=== PATIENT | male | born 1940 | race Caucasian/White ===

== ENCOUNTER 2020-05-24 16:40 | Emergency (ER) | payer MEDICARE, OTHER ==
[~2020-05-24] VITALS: Ht 188 cm; Wt 108.1 kg
[~2020-05-24 16:40] MED LIST: ACET325T9 PO; AMIT10TA PO; CHOL10003 PO; DILT120C99 PO; ESCITALOPRAM OX10 MG PO; GABA-586 PO; HYDR-2155 PO; MAG30ORA2 PO; MAGN24003 PO; METH29OI TP; MIRT7.5T8 PO; MORP-15 PO; OMEP40CA45 PO; PRAV20TA2 PO; QUET25TA PO; TAMS0.4C2 PO; WARF-31 PO
--- NOTE | 2020-05-24 16:51 | PHYS DOC ---
Past History Past Medical History: A-Fib, CAD, Depression, GERD, High Cholesterol Past Surgical History: Other Alcohol Use: None Drug Use: None Adult General Chief Complaint Chief Complaint: MECHANICAL FALL HPI HPI Patient is a 79-year-old male who presents from [facility] status post fall. Fall occurred just prior to arrival. Patient had recent spinal surgery for spinal stenosis at [facility] and [facility] at [facility] for past [facility]. Patient was going against ordered rules and attempting to transfer without assistance from bed to bedside chair when he fell onto his right hip. He fell onto carpet with cement underneath. Patient denies any loss of consciousness but cannot definitively tell me how he caught himself and braced his fall. This fall was not witnessed. Patient was on the ground and due to instantaneous right hip pain, called out for help. EMS was subsequently called for transportation to our ED for evaluation. Of note, patient currently takes Eliquis for atrial fibrillation. Besides right hip pain, patient denies any other complaints at this time The mechanism of injury was a mechanical ground level fall without syncope or near-syncope. The current level of pain is minimal The patient DOES take blood thinner medications. There is NOT a laceration associated with the injury. There was no loss of consciousness, confusion, seizure, or memory impairment. Denies neck pain. Denies vomiting, numbness/weakness, fever The tetanus immunization status is up to date. Review of Systems Review of Systems Fourteen body systems of review of systems have been reviewed. See HPI for pertinent positives and negative responses, other leung all other systems are negative, non-pertinent or non-contributory Allergies Allergies Allergies Coded Allergies Type Severity Reaction Last Updated Verified atorvastatin Allergy Unknown 05/24/20 Yes morphine Allergy Unknown 05/24/20 Yes pravastatin Allergy Unknown 05/24/20 Yes Physical Exam Physical Exam Constitutional: Pt is oriented to person, place, and time. Pt appears well- developed and well-nourished. HENT: Head: Normocephalic and atraumatic. Mouth/Throat: Oropharynx is clear and moist. No hematomas or lacerations or abrasions to face or scalp OP clear, no blood, no malocclusion, dentition intact Nares clear, no nasal septal hematoma External ears unremarkable Midface stable Eyes: Conjunctivae and EOM are normal. Pupils are equal, round, and reactive to light. Neck: C-spine midline nontender, no step-offs, good range of motion Cardiovascular: Normal rate, irregular rhythm and normal heart sounds. Pulmonary/Chest: Effort normal and breath sounds normal. No respiratory distress. He has no wheezes. CTA bilaterally Abdominal: Soft. Bowel sounds are normal. Pt exhibits mild distension. There is no tenderness. Musculoskeletal: No bony tenderness to extremities, able to wiggle fingers and toes freely, no palpable deformities, mild decreased range of motion of right hip due to pain Chest wall stable Pelvis stable, mild tenderness to palpation to lateral aspect of right hip No vertebral TTP and spine without stepoffs Neurological: Pt is alert and oriented to person, place, and time. Moving all extremities willfully, able to wiggle all fingers and toes Alert and oriented x 3 Sensation grossly intact Skin: Skin is warm and dry. Bruising at different stages of healing of upper extremities from previous vena punctures No abrasions, no lacerations Psychiatric: Behavior is appropriate for situation Nursing note and vitals reviewed. EKG EKG EKG ordered and interpreted by myself at 17 1800 hrs. as right controlled atrial fibrillation with average ventricular rate roughly 89 bpm, prolonged QTC at 506, left axis deviation, no ischemic findings, no STEMI Radiology/Procedures Radiology/Procedures PROCEDURE: HIP RIGHT 2V WITH PELVIS Right hip 2 views including AP pelvis 05/24/2020. Reason for exam: Pain after falling. Use of the right hip show no fracture or dislocation. There is mild joint space narrowing. AP view of the pelvis reveals no fracture or dislocation. No destructive process is seen. IMPRESSION: No acute abnormality. Electronically signed by: Zack Pina Jr., MD (05/24/2020 5:20 PM) [facility] PROCEDURE: CT HEAD WO CONTRAST STUDY: CT head without contrast INDICATION: Fall. On Eliquis. No reported loss of consciousness. COMPARISON: 08/24/2015 TECHNIQUE: Axial CT imaging through the head without the use of intravenous contrast. Sagittal and coronal reformats were obtained. One or more of the following individualized dose reduction techniques were utilized for this examination: 1. Automated exposure control 2. Adjustment of the mA and/or kV according to patient size 3. Use of iterative reconstruction technique. FINDINGS: No acute intracranial hemorrhage. No mass effect or midline shift. No CT evidence for an acute cortical infarction. Generalized prominence of the ventricular system is similar to comparison and most likely on account of parenchymal volume loss. Intracranial atherosclerotic calcifications. Intact calvarium. Surgical changes in the left temporoparietal region. Unchanged hypoattenuating focus within the midline frontal calvarium with internal lacelike mineralization. Stability over time is typical of a benign process. No layering fluid within the visualized paranasal sinuses. Normally aerated mastoid air cells and middle ears. IMPRESSION: No acute intracranial abnormality by CT. Chronic/senescent findings as above. Electronically signed by: TRAVIS BELTRÁN MD (05/24/2020 6:19 PM) [id number] Course & Med Decision Making Course & Med Decision Making Patient seen immediately on ED evaluation by myself Vitals stable, hemodynamically stable. History concerning for fall and high risk patient on blood thinners Physical exam grossly benign for any emergent findings Decision made to obtain [id number] glucose which was unremarkable, EKG, chest x-ray, CT head, and imaging of pelvis with emphasis on right hip Given history, exam, and workup, low suspicion for ICH, skull fx, spine fx or other acute spinal syndrome, PTX, pulmonary contusion, cardiac contusion, aortic/vertebral dissection, significant hemorrhage, extremity fracture. Patient well-appearing, at baseline mentation and physical status, and asymptomatic throughout entirety of ED visit Joint decision to discharge back to [facility] with close physician follow-up Strict return precautions discussed with good understanding by patient, all questions and concerns addressed prior to ED departure Dragon Disclaimer Dragon Disclaimer This electronic medical record was generated, in whole or in part, using a voice recognition dictation system. Departure Departure: Impression: Primary Impression: Fall Additional Impressions: Chronic a-fib Chronic anticoagulation Spinal stenosis DNR (do not resuscitate) Disposition: 01 HOME/RESIDENCE PRIOR TO ADM (Discharged via EMS back to [place]) Condition: STABLE Referrals: ANGELA PEPE DO (PCP) Patient Instructions: Fall Prevention in Hospitals Additional Instructions: Discussed prior to ER departure, please follow-up with your [facility] physician regarding recent fall You are high risk for falls and other complications given recent surgery performed on your back less than 1 month ago Please comply with prescribed orders such as ambulating with assistance in transferring with assistance as you are high risk for falling and other serious complications Justification of Admission: Justification of Admission: Justification of Admission Dx: N/A Problem Qualifiers ENE BISHOP DO May 24, 2020 16:50
--- NOTE | 2020-05-24 17:19 | EKG ---
[address] [address] Test Date: 2020-05-24 Test Time: 17:12:22 Pat Name: PORTIA PEREIRA Department: Room: Gender: M Cotton Classer Aide: NICOLE : 1940 Requested By: ENE BISHOP Order Number: [id number] Reading MD: Zack Garvin Measurements Intervals [place] Rate: 89 P: MI: QRS: -5 QRSD: 100 T: 55 QT: 410 QTc: 506 Interpretive Statements ATRIAL FIBRILLATION LEFTWARD AXIS PROLONGED QT NO SPECIFIC ECG ABNORMALITIES RI6.02 No previous ECG available for comparison Electronically Signed On 05-25-2020 14:20:42 CDT by Zack Garvin
--- NOTE | 2020-05-24 17:22 | RAD ---
Right hip 2 views including AP pelvis 05/24/2020. Reason for exam: Pain after falling. Use of the right hip show no fracture or dislocation. There is mild joint space narrowing. AP view of the pelvis reveals no fracture or dislocation. No destructive process is seen. IMPRESSION: No acute abnormality. Electronically signed by: Zack Pina Jr., MD (05/24/2020 5:20 PM) [facility]
[2020-05-24 18:13] VITALS: BP 157/57
--- NOTE | 2020-05-24 18:22 | RAD ---
STUDY: CT head without contrast INDICATION: Fall. On Eliquis. No reported loss of consciousness. COMPARISON: 08/24/2015 TECHNIQUE: Axial CT imaging through the head without the use of intravenous contrast. Sagittal and coronal reformats were obtained. One or more of the following individualized dose reduction techniques were utilized for this examination: 1. Automated exposure control 2. Adjustment of the mA and/or kV according to patient size 3. Use of iterative reconstruction technique. FINDINGS: No acute intracranial hemorrhage. No mass effect or midline shift. No CT evidence for an acute cortical infarction. Generalized prominence of the ventricular system is similar to comparison and most likely on account of parenchymal volume loss. Intracranial atherosclerotic calcifications. Intact calvarium. Surgical changes in the left temporoparietal region. Unchanged hypoattenuating focus within the midline frontal calvarium with internal lacelike mineralization. Stability over time is typical of a benign process. No layering fluid within the visualized paranasal sinuses. Normally aerated mastoid air cells and middle ears. IMPRESSION: No acute intracranial abnormality by CT. Chronic/senescent findings as above. Electronically signed by: TRAVIS BELTRÁN MD (05/24/2020 6:19 PM) [id number]
== END 2020-05-24 18:55 | disposition home or self-care (01) ==
LOC: ER 16:40
DX: M25.551 Pain in right hip (principal); I48.20 Chronic atrial fibrillation, unspecified; M48.00 Spinal stenosis, site unspecified; I25.10 Atherosclerotic heart disease of native coronary artery without angina pectoris; K21.9 Gastro-esophageal reflux disease without esophagitis; E78.00 Pure hypercholesterolemia, unspecified; Z66 Do not resuscitate; Z79.01 Long term (current) use of anticoagulants; Z88.5 Allergy status to narcotic agent; Z88.8 Allergy status to other drugs, medicaments and biological substances; W18.39XA Other fall on same level, initial encounter; Y93.89 Activity, other specified; Y92.89 Other specified places as the place of occurrence of the external cause; Y99.8 Other external cause status
CPT/HCPCS: 70450; 73502; 82947; 93005; 99285-25

== ENCOUNTER 2020-05-30 12:23 | Inpatient (IN) | payer MEDICARE, OTHER ==
[~2020-05-30] VITALS: Ht 177.8 cm; Wt 105.6 kg
[2020-05-30] MEDS ORDERED: IV RINGERS SOLUTION,LACTATED 1,000 ML IV ONE (12:45)
[2020-05-30 13:09] LABS: BASO # 0.2 x10^3/uL (0.0-0.2); BASO % 0 % (0-3); EOS # 0.3 x10^3/uL (0.0-0.7); EOS % 0 % (0-3); HEMATOCRIT 26.9 % (39.0-53.0); HEMOGLOBIN 7.5 g/dL (13.0-17.5); LYMPH # 107.7 x10^3/uL (1.0-4.8); LYMPH % 85 % (24-48); MEAN CORPUSCULAR HEMOGLOBIN 22 pg (25-35); MEAN CORPUSCULAR HGB CONC 28 g/dL (31-37); MEAN CORPUSCULAR VOLUME 81 fL (79-100); MONO # 3.6 x10^3/uL (0.0-1.1); MONO % 3 % (0-9); NEUT % 12 % (31-73); PLATELET COUNT 280 x10^3/uL (140-400); RED BLOOD COUNT 3.34 x10^6/uL (4.30-5.70); RED CELL DISTRIBUTION WIDTH 20.1 % (11.5-14.5)
--- NOTE | 2020-05-30 13:12 | RAD ---
Single view chest dated 05/30/2020. Comparison made to 08/23/2015. Clinical data indication: Fever and hypoxia. FINDINGS: 2 upright portable images submitted. Heart size is upper limits of normal. There is some patchy and linear perihilar opacities, somewhat increased. There is also retrocardiac increased density in the left. Blunting of left costophrenic sulcus. No pneumothorax. IMPRESSION: 1. Left basilar consolidation, atelectasis versus pneumonia. 2. Mild nonspecific perihilar opacities with possible small left pleural effusion. Electronically signed by: Nilson Penaloza MD (05/30/2020 1:09 PM) [id number]
[2020-05-30 13:15] LABS: CALCIUM 8.1 mg/dL (8.5-10.1); CREATININE 1.4 mg/dL (0.7-1.3); POTASSIUM 3.7 mmol/L (3.5-5.1)
[2020-05-30] MEDS ORDERED: VANCOMYCIN 1 GM VIAL. ONE (13:26)
[2020-05-30] MEDS ORDERED: IV NORMAL SALINE 500ML 0 ML ONE (13:26)
[2020-05-30 13:27] LABS: ALBUMIN 2.7 g/dL (3.4-5.0); ALBUMIN/GLOBULIN RATIO 0.8 (1.0-1.7); MAGNESIUM 2.2 mg/dL (1.8-2.4); TOTAL BILIRUBIN 0.6 mg/dL (0.2-1.0); TOTAL PROTEIN 6.3 g/dL (6.4-8.2)
[2020-05-30] MEDS ORDERED: VANCOMYCIN 2 GM in IV NORMAL SALINE 500ML 500 ML IV ONE (13:30)
[2020-05-30 13:45] LABS: WHITE BLOOD COUNT 126.7 x10^3/uL (4.0-11.0)
--- NOTE | 2020-05-30 13:49 | PHYS DOC ---
Past History Past Medical History: A-Fib, Anemia, CHF, Dementia, Depression, High Cholesterol, Hypertension, Renal Disease, Other Additional Past Medical Histor: leukemia, TBI Past Surgical History: Other Alcohol Use: None Drug Use: None General Adult EDM: Chief Complaint: FEVER HPI: HPI: The history was obtained from the patient and EMS. Patient is a 79-year-old male with PMH dementia, recent spinal fracture, atrial fibrillation, hy pertension who presents with a chief complaint of fever. Patient currently resides at [facility]. He has lived there for the past 2 weeks due to a spinal fracture that occurred approximately 2 weeks ago. He was treated at [facility]. Per EMS they were called to the patient's rehabilitation facility for acute onset of fever. EMS states they were diverted to our facility due to resource allocation in the community regarding the ambulance availability. Per EMS the staff reported a temperature of 105.0. Upon their arrival EMS notes a temperature 99.0. Patient although a poor historian is alert and oriented x3. He denies any cough. He does note some increased shortness of breath. He denies any chest pain. He states he is not ambulatory. He denies any recent falls. Denies any recent antibiotics. Denies any vomiting. States that he does not use oxygen at home. Denies any known exposure to coronavirus. Has not tested positive for smiley virus to his knowledge. No other complaints. Review of Systems: Review of Systems: Constitutional: Denies fever or chills Eyes: Denies change in visual acuity HENT: Denies nasal congestion or sore throat Respiratory: Positive for shortness of breath Cardiovascular: Denies chest pain or edema GI: Denies abdominal pain, nausea, vomiting, bloody stools or diarrhea : Denies dysuria Musculoskeletal: Denies back pain or joint pain Integument: Denies rash Neurologic: Denies headache, focal weakness or sensory changes Endocrine: Denies polyuria or polydipsia Lymphatic: Denies swollen glands Psychiatric: Denies depression or anxiety Heart Score: Risk Factors: Risk Factors: DM, Current or recent (<one month) smoker, HTN, HLP, family history of CAD, obesity. Risk Scores: Score 0 - 3: 2.5% MACE over next 6 weeks - Discharge Home Score 4 - 6: 20.3% MACE over next 6 weeks - Admit for Clinical Observation Score 7 - 10: 72.7% MACE over next 6 weeks - Early Invasive Strategies Current Medications: Current Meds: Current Medications Medications (Trade) Dose Ordered Sig/Racheal Start Time Stop Time Status Last Admin Dose Admin Cefepime HCl 2 gm/ Sodium Chloride 100 ml @ 200 mls/hr Q8HRS 05/30/20 14:00 Lactated Ringer's 1,000 ml @ 100 mls/hr 1X ONCE 05/30/20 12:45 05/30/20 22:44 05/30/20 12:52 100 MLS/HR Sodium Chloride 0 ml @ As Directed STK-MED ONCE 05/30/20 13:26 05/30/20 13:27 DC Vancomycin HCl (Vancomycin) 1 gm STK-MED ONCE 05/30/20 13:26 05/30/20 13:27 DC Vancomycin HCl 2 gm/Sodium Chloride 500 ml @ 250 mls/hr 1X ONCE 05/30/20 13:30 05/30/20 15:29 Allergies: Allergies: Allergies Coded Allergies Type Severity Reaction Last Updated Verified atorvastatin Allergy Unknown 05/24/20 Yes morphine Allergy Unknown 05/24/20 Yes pravastatin Allergy Unknown 05/24/20 Yes Physical Exam: PE: Constitutional: Well developed, well nourished, no acute distress, non-toxic appearance. [] HENT: Normocephalic, atraumatic, bilateral external ears normal, oropharynx moist, no oral exudates, nose normal. [] Eyes: PERRLA, EOMI, conjunctiva normal, no discharge. [] Neck: Normal range of motion, no tenderness, supple, no stridor. [] Cardiovascular:Heart rate regular rhythm, no murmur [] Lungs & Thorax: Crackles noted in the left lower lung pappas. No wheezes appreciated. No accessory muscle usage noted. 85% on room air per EMS. 94% on 3 L nasal cannula currently. Abdomen: soft, no tenderness, no masses, no pulsatile masses. [] Skin: Warm, dry, no erythema, no rash. [] Back: No tenderness, no CVA tenderness. [] Extremities: No tenderness, no cyanosis, no clubbing, ROM intact, no edema. [] Neurologic: Alert and oriented X 3, normal motor function, normal sensory function, no focal deficits noted. [] Psychologic: Affect normal, judgement normal, mood normal. [] Current Patient Data: Labs: Laboratory Tests Test 05/30/20 12:40 Sodium Level 143 mmol/L (136-145) Potassium Level 3.7 mmol/L (3.5-5.1) Chloride Level 105 mmol/L (98-107) Carbon Dioxide Level 27 mmol/L (21-32) Anion Gap 11 (6-14) Blood Urea Nitrogen 23 mg/dL (8-26) Creatinine 1.4 mg/dL (0.7-1.3) H Estimated GFR (Cockcroft-Gault) 49.0 BUN/Creatinine Ratio 16 (6-20) Glucose Level 148 mg/dL (70-99) H Lactic Acid Level 1.0 mmol/L (0.4-2.0) Calcium Level 8.1 mg/dL (8.5-10.1) L Magnesium Level 2.2 mg/dL (1.8-2.4) Total Bilirubin 0.6 mg/dL (0.2-1.0) Aspartate Amino Transferase (AST) 14 U/L (15-37) L Alanine Aminotransferase (ALT) 13 U/L (16-63) L Alkaline Phosphatase 90 U/L (46-116) Troponin I Quantitative < 0.017 ng/mL (0-0.055) GR-Csw-B-Type Natriuretic Peptide 5810 pg/mL (0-449) H Total Protein 6.3 g/dL (6.4-8.2) L Albumin 2.7 g/dL (3.4-5.0) L Albumin/Globulin Ratio 0.8 (1.0-1.7) L Vital Signs: Vital Signs Date Time Temp Pulse Resp B/P (MAP) Pulse Ox O2 Delivery O2 Flow Rate FiO2 05/30/20 12:23 98.3 80 32 150/50 (83) 94 Nasal Cannula 2.0 EKG: EKG: EKG consistent with normal sinus rhythm. Ventricular rate of 92 bpm. Left axis noted. Flipped T waves noted in lead I. Slight worsening of ST segment flattening and very minimal depression noted in lateral precordial leads.. No ST segment elevation appreciated. Overall similar to EKG from May 24, 2020.. [] Radiology/Procedures: Radiology/Procedures: [address] [address] IMAGING REPORT Signed PATIENT: PORTIA PEREIRA ACCOUNT: [id number] : 1940 LOCATION: ER AGE: 79 SEX: M EXAM STATUS: REG ER ORD. PHYSICIAN: ZACKARY STOCKTON DO REASON: fever and hypoxia PROCEDURE: CHEST AP ONLY Single view chest dated 05/30/2020. Comparison made to 08/23/2015. Clinical data indication: Fever and hypoxia. FINDINGS: 2 upright portable images submitted. Heart size is upper limits of normal. There is some patchy and linear perihilar opacities, somewhat increased. There is also retrocardiac increased density in the left. Blunting of left costophrenic sulcus. No pneumothorax. IMPRESSION: 1. Left basilar consolidation, atelectasis versus pneumonia. 2. Mild nonspecific perihilar opacities with possible small left pleural effusion. Electronically signed by: Nlison Penaloza MD (05/30/2020 1:09 PM) [id number] DICTATED AND SIGNED BY: NILSON PENALOZA MD DATE: 05/30/20 1309 CC: KRANTHI PRUITT MD; ZACKARY STOCKTON DO ~ [] Course & Med Decision Making: Course & Med Decision Making Pertinent Labs and Imaging studies reviewed. (See chart for details) Patient is a 79-year-old male who presents with a chief complaint of acute onset fever per the staff at his rehabilitation facility. Upon arrival EMS states that the patient was satting at approximately 85% on room air. He has been satting at 94% on 3 L nasal cannula in our emergency department. Chest x-ray is suspicious for left lower lobe infiltrate. However he does have a history of A. fib and does have a mildly elevated proBNP. Given the reported temperature a ntibiotics will be administered. Vancomycin and cefepime were given, given the potential for senior living acquired pneumonia. Lactate 1.0. Afebrile and normotensive in emergency department. Fluids were administered. Blood cultures obtained and pending. COVID swab obtained and pending. Patient will be hospitalized for further care. Dragon Disclaimer: Dragon Disclaimer: This electronic medical record was generated, in whole or in part, using a voice recognition dictation system. 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
[2020-05-30] MEDS: CEFEPIME HCL 2 GM in IV NORMAL SALINE 100ML 100 ML IV SCH ×2 (13:55→22:00)
[2020-05-30 14:10] LABS: % ATYL 1 % (0-0); % MONOS 2 % (0-10); % SEGS 10 % (35-66); PLT ESTIMATE ADEQUATE (ADEQUATE); SMUDGE CELLS PRESENT
[2020-05-30 14:12] LABS: HYPOCHROMIA PRESENT
[2020-05-30 14:13] LABS: POLYCHROMASIA PRESENT
[2020-05-30 14:34] LABS: OVALOCYTES FEW
--- NOTE | 2020-05-30 15:38 | NUR ---
The patient, PORTIA PEREIRA, 79 y/o, M admitted by NICOLASA CORCORAN MD, was given written information regarding hospital policies, unit procedures and contact persons. Valuables were checked and left with patient at bedside. vital signs are stable at this time. will ctm.
[2020-05-30 15:55] VITALS: BP 140/45
[2020-05-30] MEDS ORDERED: APIX5TAB3 PO (16:29)
[2020-05-30] MEDS ORDERED: VENL37.5 PO (16:29)
[2020-05-30] MEDS ORDERED: DOCU-109 PO (16:29)
[2020-05-30] MEDS ORDERED: DILT120C2 PO (16:29)
[2020-05-30] MEDS ORDERED: CRESTOR10 MG PO (16:29)
[2020-05-30] MEDS ORDERED: TORS10TA3 PO (16:29)
[2020-05-30] MEDS ORDERED: MULT-245 PO (16:29)
[2020-05-30] MEDS ORDERED: ALPH600C5 PO (16:29)
[2020-05-30] MEDS ORDERED: LORA0.5T21 PO (16:29)
[2020-05-30] MEDS ORDERED: TRIM100T13 PO ×2 (16:38→16:48)
[2020-05-30] MEDS ORDERED: MEMA10TA PO (16:38)
[2020-05-30] MEDS ORDERED: GABA800T5 PO (16:44)
[2020-05-30] MEDS ORDERED: POTA8TAB PO (16:48)
[2020-05-30] MEDS ORDERED: OMEP20TA63 PO (16:48)
[2020-05-30] MEDS ORDERED: TRAZ-120 PO (16:48)
[2020-05-30] MEDS ORDERED: CALC-157 PO (16:48)
[2020-05-30] MEDS ORDERED: CYAN-25 PO (16:48)
[2020-05-30] MEDS ORDERED: VITA100022 PO (16:52)
[2020-05-30] MEDS ORDERED: DICL100G18 TP (16:52)
[2020-05-30] MEDS ORDERED: CHOL400T36 PO (16:52)
[2020-05-30 19:30] VITALS: BP 139/58
[2020-05-30] MEDS ORDERED: ANTI-COAG MONITOR BY PHARMACY. MC PRN (20:15)
--- NOTE | 2020-05-30 20:53 | EKG ---
[address] [address] Test Date: 2020-05-30 Test Time: 12:47:29 Pat Name: PORTIA PEREIRA Department: Room: Gender: M Ic Design Manager: : 1940 Requested By: ZACKARY STOCKTON Order Number: [id number] Reading MD: Measurements Intervals [place] Rate: 92 P: ND: QRS: -5 QRSD: 100 T: 146 QT: 370 QTc: 463 Interpretive Statements IRREGULAR RHYTHM, NO P-WAVE FOUND LEFTWARD AXIS ST & T ABNORMALITY, CONSIDER HIGH LATERAL ISCHEMIA OR LEFT VENTRICULAR STRAIN ABNORMAL ECG RI6.02 No previous ECG available for comparison
[2020-05-30] MEDS: MEMANTINE 10 MG TABLET. PO SCH (21:00)
[2020-05-30] MEDS: traZODone 50 MG TABLET. PO SCH (21:00)
[2020-05-30] MEDS: APIXABAN 5 MG TABLET. PO SCH (21:00)
[2020-05-30 22:59] VITALS: BP 118/47
--- NOTE | 2020-05-30 23:31 | HP ---
ADMIT DATE: 05/30/2020 ATTENDING PHYSICIAN: Dr. Corcoran. CHIEF COMPLAINT: Fevers. HISTORY OF PRESENT ILLNESS: The patient is a 79-year-old gentleman, currently residing at [facility]. He has had a decompression spinal fracture, treated at [facility]. He is profoundly demented. He was sent there for rehabilitation. Supposedly, EMS personnel reported a temperature of 105 degrees Fahrenheit. In the ED, his actual temperature was 99 degrees Fahrenheit. He denies any cough. He has increased shortness of breath and chronic shortness of breath, no chest pain. Chest x-ray in the ED demonstrated left lower lobe consolidation, infiltrate as well as perihilar infiltrates bilaterally. He has long term acquired pneumonia. In addition, because of the COVID pandemic, a COVID swab was ordered. He is not in impending respiratory failure. He has adequate saturations, on a small amount of supplemental oxygen. He is a DNR per advanced directives. He was admitted then for long term acquired pneumonia. PAST MEDICAL HISTORY: Significant for advanced chronic lymphocytic leukemia. White count is 127,000. He has anemia due to crowding out the bone marrow from his lymphocytic leukemia. He has profound dementia, depression, hypertension, chronic kidney disease, and paroxysmal atrial fibrillation. ALLERGIES: HE HAS ALLERGIES TO ATORVASTATIN, MORPHINE, AND PRAVASTATIN, EXACT REACTIONS UNCLEAR. CURRENT MEDICINES: Reviewed from the long term. He was on apixaban 5 mg b.i.d., Tylenol, lipoic acid, calcium, cholecalciferol, vitamin B12, Voltaren gel, diltiazem, docusate, Neurontin, lorazepam, Namenda, menthol, multivitamin, omeprazole, potassium, Crestor, Flomax, Demadex, trazodone, Effexor and vitamin E. FAMILY HISTORY: Unobtainable. REVIEW OF SYSTEMS: Unobtainable due to the patient's condition. He is not aware of what is going on. He is confused, but in no acute distress. PHYSICAL EXAMINATION: GENERAL: When I saw him, this is a pleasant elderly gentleman who appears very confused. He is not agitated. INITIAL VITAL SIGNS: In the ED showed a blood pressure 150/50 mmHg; respirations 24, unlabored; pulse is 80 and regular; temperature 98.4 degrees Fahrenheit; oxygen saturation 95% on 2 liters of nasal cannula. HEENT: Head is without trauma. Pupils are reactive. Sclerae nonicteric. Oropharynx clear. NECK: Supple, no bruits or stridor. LUNGS: Diminished breath sounds at the bases, minimal wheezing noted in the upper airways. CARDIOVASCULAR: Showed distant heart tones. No gallops. Peripheral pulses are palpable full. ABDOMEN: Obese, protuberant. No organomegaly. Bowel sounds are hypoactive. He has adult diapers. He is incontinent. EXTREMITIES: Showed no cyanosis or edema. NEUROLOGIC: Speech is fluent. He has no focal neurologic deficit. However, he is very confused to person, to place and time. SKIN: Pale but warm to touch. There are no open lesions. PERTINENT LABORATORY STUDIES AND IMAGING STUDIES: Initial chest x-ray in the ED showed a left basilar consolidation, nonspecific perihilar opacities bilateral, small pleural effusion identified. Laboratory studies are tell-tell, the white count of 126,000, hemoglobin is 7.5 g/dL, the platelet counts are 280,000. There are smudge cells present. There is polychromasia. The differential shows that the majority of these white cells are lymphocytes. Chemistry panel: Creatinine is 1.4 mg/dL, nonfasting blood sugar 148. Cardiac enzymes negative for myocardial necrosis. Potassium 3.7 mEq, sodium 143 mEq. BNP is 5800. ASSESSMENT: 1. A 79-year-old gentleman with long term acquired pneumonia. 2. Chronic respiratory failure. 3. Profound dementia. 4. Longstanding chronic lymphocytic leukemia. 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 6. Degenerative arthritis. 7. Recent fall and spinal compression fracture. 8. Mild renal insufficiency. 9. Hypertension. 10. Paroxysmal atrial fibrillation. PLAN: 1. Admit to the inpatient unit. 2. Intravenous antibiotics have been ordered. 3. Home meds reviewed and simplified. 4. Serial chemistries. 5. The patient has advanced directives for a DNR status. We will respect his wishes. Prognosis is guarded. 6. Diet as tolerated. 7. COVID-19 swab is pending. I do not expect this to be positive. NICOLASA CORCORAN MD DR: WILDER/sherlyn JOB#: [id number] / [id number] KRANTHI Perez MD
[2020-05-31] MEDS: LORazepam 0.5 MG TABLET PO PRN ×3 (00:39→23:49)
[2020-05-31] MEDS: ACETAMINOPHEN 325 MG TABLET PO PRN ×2 (00:39→08:49)
--- NOTE | 2020-05-31 01:34 | NUR ---
Pt oriented only to self. He answers questions with contradictions at times. Pt moaning and c/o all over pain and sweating while sleeping. Rolled pt to left side and tucked pillow behind him. Pt frequently removes his nasal cannula thinking it's his glasses. Repositioned nasal cannula properly. Encouraged pt to leave it in place. Will continue to monitor.
[2020-05-31 05:30] VITALS: BP 137/42
[2020-05-31] MEDS: CEFEPIME HCL 2 GM in IV NORMAL SALINE 100ML 100 ML IV SCH ×3 (05:41→21:04)
[2020-05-31 05:58] LABS: BASO # 0.5 x10^3/uL (0.0-0.2); BASO % 0 % (0-3); EOS # 0.4 x10^3/uL (0.0-0.7); EOS % 0 % (0-3); HEMATOCRIT 26.2 % (39.0-53.0); HEMOGLOBIN 7.2 g/dL (13.0-17.5); LYMPH # 102.5 x10^3/uL (1.0-4.8); LYMPH % 85 % (24-48); MEAN CORPUSCULAR HEMOGLOBIN 22 pg (25-35); MEAN CORPUSCULAR HGB CONC 28 g/dL (31-37); MEAN CORPUSCULAR VOLUME 81 fL (79-100); MONO # 3.2 x10^3/uL (0.0-1.1); MONO % 3 % (0-9); NEUT # 14.5 x10^3uL (1.8-7.7); NEUT % 12 % (31-73); PLATELET COUNT 247 x10^3/uL (140-400); RED BLOOD COUNT 3.23 x10^6/uL (4.30-5.70); RED CELL DISTRIBUTION WIDTH 19.7 % (11.5-14.5)
[2020-05-31 06:00] LABS: CREATININE 1.2 mg/dL (0.7-1.3); GFR 58.6; POTASSIUM 3.9 mmol/L (3.5-5.1)
[2020-05-31 06:22] LABS: WHITE BLOOD COUNT 121.1 x10^3/uL (4.0-11.0)
[2020-05-31] MEDS: TAMSULOSIN 0.4 MG CAP.ER.24H. PO SCH (07:49)
[2020-05-31] MEDS: MEMANTINE 10 MG TABLET. PO SCH ×2 (07:49→21:04)
[2020-05-31] MEDS: APIXABAN 5 MG TABLET. PO SCH ×2 (07:49→21:04)
[2020-05-31] MEDS: PANTOPRAZOLE 40 MG TABLET. PO SCH (07:49)
[2020-05-31] MEDS: LACTOBACILLUS RHAMNOSUS GG 1 CAPSULE. PO SCH ×2 (08:51→21:04)
--- NOTE | 2020-05-31 11:29 | PN ---
DATE: 05/31/2020 ATTENDING PHYSICIAN: Dr. Corcoran. SUBJECTIVE: No new complaints. He is feeling better. He denied any dyspnea nor pain. Unfortunately, he remains very confused. He wants to go home. He clearly cannot take care of himself as he came from the [facility]. OBJECTIVE FINDINGS: VITAL SIGNS: His blood pressure today is 137/42 mmHg, temperature 97.4 degrees Fahrenheit, pulse 70 and regular, oxygen saturation 94% on 2 liters of supplemental oxygen by nasal cannula. HEENT: Head is without trauma. Pupils are reactive. Sclerae nonicteric. Oropharynx clear. NECK: Supple. LUNGS: Good breath sounds. Diminished breath sounds at the bases. CARDIOVASCULAR: Showed distant heart tones. No gallops. Peripheral pulses are palpable and full. ABDOMEN: Obese, protuberant. No organomegaly. Bowel sounds were hypoactive. EXTREMITIES: Show trace edema. SKIN: Pale, but warm. NEUROLOGIC: Pleasantly confused. He is not aware of time or place. PERTINENT LABORATORY DATA: Repeat white count today was 121,000 ____, hemoglobin 7.2 g/dL. Chemistry panel showed stable creatinine and electrolytes. Creatinine is 1.2 mg/dL, nonfasting blood sugar 109. ASSESSMENT: 1. A 79-year-old gentleman with community-acquired pneumonia. 2. Acute on chronic respiratory failure, improved. 3. Profound dementia, requiring senior living care. 4. Longstanding chronic lymphocytic leukemia. 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 6. Degenerative arthritis. 7. Recent fall and spinal compression fracture. 8. Renal insufficiency, improved with hydration. 9. Hypertension. 10. Paroxysmal atrial fibrillation. PLAN: 1. Continue antibiotics as ordered. 2. Home meds simplified and reviewed. 3. Serial chemistries. 4. Diet as tolerated. 5. COVID-19 swab is pending. If that is negative, we will move him out of isolation to the regular floor. 6. He is a DNR per advanced directives. Our goal is to get him stabilized, then to oral antibiotics and back to [facility]. NICOLASA CORCORAN MD DR: WILDER/sherlyn JOB#: [id number] / [id number]
[2020-05-31 12:24] VITALS: BP 137/59
[2020-05-31 16:30] VITALS: BP 148/72
[2020-05-31 20:43] VITALS: BP 138/67
[2020-05-31] MEDS: traZODone 50 MG TABLET. PO SCH (21:04)
--- NOTE | 2020-05-31 22:02 | NUR ---
PT stating in no pain at time of assessment. PT only oriented to self. PT when asked how he was replied with "I've been playing with my penis". PT able to swallow medications whole, given 2-3 smaller ones at a time.
[2020-05-31 23:13] VITALS: BP 142/69
[2020-06-01 05:39] VITALS: BP 143/67
[2020-06-01] MEDS: CEFEPIME HCL 2 GM in IV NORMAL SALINE 100ML 100 ML IV SCH ×3 (06:17→22:00)
[2020-06-01] MEDS: ACETAMINOPHEN 325 MG TABLET PO PRN (07:40)
[2020-06-01] MEDS: LACTOBACILLUS RHAMNOSUS GG 1 CAPSULE. PO SCH ×2 (07:40→20:03)
[2020-06-01] MEDS: TAMSULOSIN 0.4 MG CAP.ER.24H. PO SCH (07:40)
[2020-06-01] MEDS: PANTOPRAZOLE 40 MG TABLET. PO SCH (07:40)
[2020-06-01] MEDS: APIXABAN 5 MG TABLET. PO SCH ×2 (07:40→20:04)
[2020-06-01] MEDS: MEMANTINE 10 MG TABLET. PO SCH ×2 (07:40→20:03)
[2020-06-01] MEDS: LORazepam 0.5 MG TABLET PO PRN ×3 (07:40→22:02)
[2020-06-01 10:06] VITALS: BP 145/52
--- NOTE | 2020-06-01 10:20 | NUR ---
IP: patient PUI for COVID-19, requires contact and airborne precautions.
--- NOTE | 2020-06-01 13:57 | PN ---
DATE: 06/01/2020 ATTENDING PHYSICIAN: Dr. Corcoran SUBJECTIVE: The patient remains pleasantly confused. He wants to go home. He does not understand that he has been at a alf. He has profound dementia and cannot take care of himself. He denied any pains at this time. OBJECTIVE FINDINGS: VITAL SIGNS: Blood pressure today is 145/52 mmHg, temperature is 97.1 degrees Fahrenheit, pulse 82 and regular, oxygen saturation 96% on room air. HEENT: Head is without trauma. The pupils are reactive. Sclerae nonicteric. Oropharynx is clear. NECK: Supple. LUNGS: Shallow respirations, but good air movement. CARDIOVASCULAR: Showed distant heart tones. ABDOMEN: Obese, protuberant. I could not palpate any liver or spleen enlargement due to the size. Bowel sounds are normoactive. EXTREMITIES: Show trace edema. SKIN: I examined the area of his back over the thoracic area where he had a recent surgery in the last month at [facility]. The soft tissue is slightly reddened, indurated. I could not palpate any obvious masses or fluid collection or blood collection. He is not symptomatic at this time. LABORATORY STUDIES: Reviewed yesterday. White count is still 121,000, predominantly lymphocytes. Electrolytes, BUN and creatinine within normal range. ASSESSMENT: 1. A 79-year-old gentleman with alf acquired pneumonia. 2. Acute on chronic respiratory failure, stable. 3. Profound dementia. 4. Longstanding chronic lymphocytic leukemia. 5. Anemia secondary to chronic lymphocytic leukemia. 6. Degenerative arthritis. 7. Recent fall and spinal compression fracture. At the procedure site, there is associated area of skin that is slightly reddened and indurated. 8. Renal insufficiency. 9. Hypertension. 10. Paroxysmal atrial fibrillation. PLAN: 1. Continue antibiotics as ordered. 2. Await COVID-19 swab results. 3. I shall order a limited CT scan of the thoracic spine looking the soft tissue spaces to look for abscess and seromas. 4. Serial chemistries. 5. Diet as tolerated. 6. He is a DNR per advance directives. We will respect his wishes. NICOLASA CORCORAN MD DR: WILDER/sherlyn JOB#: [id number] / [id number] KRANTHI Perez MD
[2020-06-01 14:19] LABS: % LYMPHS 87 % (24-48)
[2020-06-01 15:16] VITALS: BP 147/71
--- NOTE | 2020-06-01 16:58 | RAD ---
CT scan of the thoracic spine without contrast 06/01/2020 CLINICAL HISTORY: Recent mid back surgery with swelling and drainage. TECHNIQUE: Unenhanced, contiguous, 2.625 mm axial sections were obtained through the thoracic spine. 3 mm reconstructed sagittal, axial and coronal images were obtained. One or more of the following individualized dose reduction techniques were utilized for this study: 1. Automated exposure control. 2. Adjustment of the mA and/or kV according to patient size. 3. Use of iterative reconstruction technique. FINDINGS: Sagittal and coronal reconstructed images demonstrate diffuse osteopenia of the visualized bony structures. Mild S-shaped curvature of the thoracolumbar spine is seen. The patient is post fusion using pedicle screws and stabilizing rods extending from T10 to L1. The patient is post laminectomy at T11-T12, T12-L1 and extending from L2 through at least L3-4. A fluid collection is seen within the subcutaneous fat of the mid and lower thoracic spine which measures approximately 19.8 x 4.7 x 2.5 cm in craniocaudal, transverse and AP dimensions. This likely represents a seroma. This is slightly to the right of midline. Degenerative changes are seen involving the thoracic disc spaces consisting of vertebral endplate sclerosis and mild to moderate anterolateral vertebral body osteophyte formation. Atherosclerotic calcification of the thoracic aorta and its branches is noted. There is mild to moderate cardiomegaly. Scattered coronary artery calcifications are seen. Dependent atelectasis is seen involving both lower lobes. No fracture or subluxation of the thoracic vertebrae is seen. Degenerative changes are seen involving the thoracic disc spaces consisting of predominantly degenerative changes involving the facet joints. These findings result in mild to moderate central spinal canal stenosis at T10-11. Moderate left neural foraminal stenosis is seen at T10-11. IMPRESSION: 1. Postsurgical changes are seen involving the lower thoracic and visualized lumbar spine as discussed above. An oval-shaped fluid collection is seen within the subcutaneous fat involving the mid and lower thoracic spine which measures 19.8 cm craniocaudal dimensions. This likely represents a seroma. 2. Degenerative changes are seen involving the thoracic spine. These findings result in mild to moderate central spinal canal stenosis with moderate left neural foraminal stenosis at T10-11. Electronically signed by: Justice Henao MD (06/01/2020 4:54 PM) [id number]
--- NOTE | 2020-06-01 17:17 | NUR ---
Dr Corcoran notified of CT Results. PT may need transferred to [facility] tomorrow for seroma by IR. DR CORCORAN reported he will call [facility] in AM. Abdelrahman MALCOLM
[2020-06-01 19:31] VITALS: BP 135/64
[2020-06-01] MEDS: traZODone 50 MG TABLET. PO SCH (20:03)
[2020-06-01 23:25] VITALS: BP 145/75
[2020-06-02] MEDS: LORazepam 0.5 MG TABLET PO PRN ×3 (00:28→20:59)
[2020-06-02] MEDS: CEFEPIME HCL 2 GM in IV NORMAL SALINE 100ML 100 ML IV SCH ×3 (05:52→21:00)
[2020-06-02 06:23] VITALS: BP 155/55
[2020-06-02] MEDS: APIXABAN 5 MG TABLET. PO SCH ×2 (08:10→21:00)
[2020-06-02] MEDS: PANTOPRAZOLE 40 MG TABLET. PO SCH (08:10)
[2020-06-02] MEDS: LACTOBACILLUS RHAMNOSUS GG 1 CAPSULE. PO SCH ×2 (08:10→20:59)
[2020-06-02] MEDS: TAMSULOSIN 0.4 MG CAP.ER.24H. PO SCH (08:11)
[2020-06-02] MEDS: MEMANTINE 10 MG TABLET. PO SCH ×2 (08:11→20:59)
--- NOTE | 2020-06-02 09:57 | PN ---
DATE: 06/02/2020 ATTENDING PHYSICIAN: Dr. Corcoran. SUBJECTIVE: "I want to go home." The patient has very little insight. He is bedridden. He weighs 240 pounds and requires 3-1 nursing staff assistance just to move around in bed. He is nonweightbearing. Clearly, he cannot ambulate even with assistance at this time. He does not understand this and he has no memory of what we said in the past. OBJECTIVE FINDINGS: GENERAL: We sent him down for a CT of the thoracic spine. They found a 19 cm oval fluid collection consistent with a seroma. It does not appear infected at this time, he is not symptomatic. VITAL SIGNS: Blood pressure today is 155/50, pulse 91 and regular, temperature 98.3 degrees Fahrenheit, oxygen saturation 96% on 2 liters. HEENT: Head is without trauma. Pupils are reactive. Sclerae nonicteric. Oropharynx clear. NECK: Supple, no bruits. LUNGS: Shallow respirations, otherwise good breath sounds. CARDIOVASCULAR: Showed distant heart tones. No gallops. ABDOMEN: Obese, protuberant. No organomegaly. Bowel sounds are normoactive. EXTREMITIES: Show trace edema. NEUROLOGIC FUNCTION: He is very confused, not aware of person, place or time. He is nonambulatory and requires 2-1 and 3-1 nursing care just to transfer him on the bed. MICROBIOLOGY: No growth in the blood at this time. ASSESSMENT: 1. A 79-year-old gentleman from the custodial. He has custodial acquired pneumonia. 2. Acute on chronic respiratory failure, stable. 3. Profound dementia. 4. Longstanding chronic lymphocytic leukemia. 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 6. Degenerative arthritis. 7. Recent back surgery with metal rods. He has a postoperative 19 cm fluid collection. He is asymptomatic. 8. Recent fall and spinal fracture. 9. Renal insufficiency. 10. Hypertension. 11. Paroxysmal atrial fibrillation. PLAN: 1. Continue antibiotics as ordered. 2. The options regarding the seroma is to either do nothing or to send him to [facility]iology at [place] for placement of a drain. Unfortunately, today, the patient does not have the capability to give informed consent. I looked on the chart and there is no power of attorney lawyer. We are in the process of trying to figure out who his power of attorney lawyer is, but until then we can hold off on any anticipated procedure. 3. Serial CBC and chemistry. 4. Diet as tolerated. 5. He remains a DNR per advanced directive. NICOLASA CORCORAN MD DR: WILDER/sherlyn JOB#: [id number] / [id number]
[2020-06-02 11:24] VITALS: BP 148/71
[2020-06-02 14:59] VITALS: BP 135/70
--- NOTE | 2020-06-02 16:04 | NUR ---
Wound/Ostomy Care Wound Type/Assessment: lower midline back surgical incision dehiscence Treatment Recommendations/Plan: Cleanse wound and cover with Aquacel Ag rope and cover with foam dressing. Change every other day. Education provided: Educated patient on dressing change however patient has dementia. Offloading surface/device: N/A Recommended Referrals/Tests: RN to determine further POC tomorrow after seen by Dr. Dang and how aggressive patient/family chooses to proceed. Discharge Recommendations for dressings: Current treatment plan if no surgical intervention takes place. Patient had bowel movement, patient cleaned and brief changed. Patient repositioned in bed. Bed lowered and call light in reach.
[2020-06-02 19:18] VITALS: BP 138/66
[2020-06-02] MEDS: traZODone 50 MG TABLET. PO SCH (20:59)
[2020-06-02 23:29] VITALS: BP 149/72
[2020-06-03] MEDS: ACETAMINOPHEN 325 MG TABLET PO PRN ×2 (01:04→20:43)
--- NOTE | 2020-06-03 03:06 | NUR ---
Pt up anxious in bed during assessment. Pt is oriented to self only. Pt had no complaints of pain during assessment. Pt tolerated taking meds whole. Pt given PRN Ativan as indicated w/ HS meds. Pt called out multiple times in the night. Pt grimaced when Q2 turns where being performed. Pt then received PRN Tylenol as indicated. Pt has calmed but stills continues to call out. Will continue to monitor.
[2020-06-03] MEDS: CEFEPIME HCL 2 GM in IV NORMAL SALINE 100ML 100 ML IV SCH ×3 (05:43→21:54)
[2020-06-03 05:58] LABS: BASO # 0.2 x10^3/uL (0.0-0.2); BASO % 0 % (0-3); EOS # 0.7 x10^3/uL (0.0-0.7); EOS % 1 % (0-3); HEMATOCRIT 26.8 % (39.0-53.0); HEMOGLOBIN 7.4 g/dL (13.0-17.5); LYMPH % 89 % (24-48); MEAN CORPUSCULAR HEMOGLOBIN 22 pg (25-35); MEAN CORPUSCULAR HGB CONC 27 g/dL (31-37); MEAN CORPUSCULAR VOLUME 81 fL (79-100); MONO # 1.7 x10^3/uL (0.0-1.1); MONO % 2 % (0-9); NEUT # 9.7 x10^3uL (1.8-7.7); NEUT % 9 % (31-73); PLATELET COUNT 260 x10^3/uL (140-400); RED CELL DISTRIBUTION WIDTH 19.9 % (11.5-14.5)
[2020-06-03 06:03] LABS: CALCIUM 8.3 mg/dL (8.5-10.1); GFR 72.3; POTASSIUM 3.5 mmol/L (3.5-5.1)
[2020-06-03 06:20] LABS: WHITE BLOOD COUNT 112.2 x10^3/uL (4.0-11.0)
[2020-06-03 07:38] LABS: % LYMPHS 93 % (24-48); % SEGS 7 % (35-66)
[2020-06-03 07:40] LABS: ANISOCYTOSIS MOD; MICROCYTOSIS SLIGHT; PLT ESTIMATE ADEQUATE (ADEQUATE); POIKILOCYTOSIS SLIGHT; POLYCHROMASIA PRESENT
[2020-06-03 07:41] LABS: OVALOCYTES FEW; TEAR DROP CELLS OCC
[2020-06-03 07:42] LABS: HYPOCHROMIA SLIGHT; SMUDGE CELLS PRESENT
[2020-06-03] MEDS: APIXABAN 5 MG TABLET. PO SCH ×2 (08:22→20:43)
[2020-06-03] MEDS: TAMSULOSIN 0.4 MG CAP.ER.24H. PO SCH (08:22)
[2020-06-03] MEDS: PANTOPRAZOLE 40 MG TABLET. PO SCH (08:22)
[2020-06-03] MEDS: LACTOBACILLUS RHAMNOSUS GG 1 CAPSULE. PO SCH ×2 (08:22→20:43)
[2020-06-03] MEDS: MEMANTINE 10 MG TABLET. PO SCH ×2 (08:22→20:43)
--- NOTE | 2020-06-03 15:06 | PN ---
DATE: 06/03/2020 SUBJECTIVE: The patient is resting slightly propped up in bed, in no apparent respiratory distress. He is awake, alert, somewhat confused. The nursing staff stated that the wound has slightly dehisced. His CT scan of the chest done on admission showed that there is a fluid collection seen within the subcutaneous fat of the mid and lower thoracic spine, which measures approximately 19.8 x 4.7 x 2.5 cm in craniocaudal transverse and anteroposterior dimension. This likely represents a seroma. This is slightly to the right of the midline. Degenerative changes are seen involving the thoracic disk spaces consisting vertebral endplate sclerosis, mild to moderate anterolateral vertebral body osteophyte formation. He has post fusion using pedicle screws and stabilizing rods extending from T10-L1. The patient is post-laminectomy at T11-T12, T12-L1 and extending from L2 through at least L3-L4. The patient was admitted with hypoxia and shortness of breath and was found to have left basilar consolidation, atelectasis versus pneumonia and mild nonspecific perihilar opacities with possible small left sided pleural effusion. He was seen in the Emergency Room of [facility] where he was treated for acute respiratory failure, hypoxia and mcc pneumonia as well as acute lymphoblastic leukemia and was treated with cefepime 2 g IV every 8 hours. PHYSICAL EXAMINATION: GENERAL: When I saw him today, he was pale, but no jaundice, cyanosis or thyromegaly. No jugular venous distention. No limb edema. VITAL SIGNS: His heart rate was 90, blood pressure was 149/72, temperature was 98.4, respiratory rate was 20, and oxygen saturation was 97% on 2 liters of oxygen. HEENT: Showed normocephalic, atraumatic. NECK: Supple. HEART: Showed normal first and second heart sounds. No gallop, rub or murmur. CHEST: Clear to auscultation. No crepitation or rhonchi. ABDOMEN: Distended, soft, nontender. No guarding or rigidity. No organomegaly. All hernial orifice intact. Bowel sounds normal. NEUROLOGIC: He was awake, alert, somewhat confused. All his cranial nerves are intact. He moves his upper extremities to much greater extent than lower extremities, mostly bed bound. He has a Mikie lift for all the transfers. He is occasionally incontinent. LABORATORY DATA: As of this morning showed a white cell count 112,200 hemoglobin 7.4, hematocrit 26.8, MCV 81 and platelet count 260,000 with a manual differential showed 89% lymphocytes and 9% neutrophils. His chemistry showed a serum sodium 144, potassium 3.5, chloride 108, bicarbonate 28, anion gap of 8, BUN 20, creatinine 1, estimated GFR was 72 mL per minute. His glucose was 111, calcium was 8.3. Prothrombin time was 15.8, INR 1.4. His coronavirus by PCR not detected. ASSESSMENT: 1. Acute hypoxic respiratory failure, improved. 2. Healthcare-associated pneumonia for which he is on IV cefepime. 3. Longstanding chronic lymphatic leukemia, anemia secondary to chronic lymphatic leukemia. 4. He has profound dementia. 5. Degenerative disk disease. He is status post recent back surgery in the form of laminectomy at T11-T12, T12-L1 and extending from L2 through at least L3-L4. He was found to have a collection seen within the subcutaneous fat of the mid to lower thoracic spine. It measures approximately 19.8 x 4.7 x 2.5. He apparently has a recent fall with spinal fracture, chronic renal insufficiency, hypertension, paroxysmal atrial fibrillation. PLAN: To continue with IV antibiotic. Given the large fluid collection, I spoke with Dr. Enamorado who said that he should not be touched and this should eventually absorb spontaneously and is a common finding. He also recommended that the patient should be admitted to an inpatient rehab hospital like [facility] and/or [facility]. KRANTHI PRUITT MD DR: ONELIA/sherlyn JOB#: [id number] / [id number]
[2020-06-03 15:10] VITALS: BP 142/70
[2020-06-03 19:19] VITALS: BP 154/65
[2020-06-03] MEDS: traZODone 50 MG TABLET. PO SCH (20:43)
[2020-06-03 22:22] VITALS: BP 145/77
[2020-06-04 06:04] VITALS: BP 153/68
[2020-06-04] MEDS: CEFEPIME HCL 2 GM in IV NORMAL SALINE 100ML 100 ML IV SCH ×3 (06:15→21:46)
[2020-06-04] MEDS: MULTIVITAMIN with MINERAL TABLET. PO SCH (08:22)
[2020-06-04] MEDS: MEMANTINE 10 MG TABLET. PO SCH ×2 (08:22→20:26)
[2020-06-04] MEDS: TAMSULOSIN 0.4 MG CAP.ER.24H. PO SCH (08:22)
[2020-06-04] MEDS: PANTOPRAZOLE 40 MG TABLET. PO SCH (08:22)
[2020-06-04] MEDS: ASCORBIC ACID 500 MG TABLET PO SCH (08:22)
[2020-06-04] MEDS: LACTOBACILLUS RHAMNOSUS GG 1 CAPSULE. PO SCH ×2 (08:22→20:26)
[2020-06-04] MEDS: APIXABAN 5 MG TABLET. PO SCH ×2 (08:22→20:26)
[2020-06-04 10:36] VITALS: BP 147/62
[2020-06-04 14:51] VITALS: BP 130/64
[2020-06-04] MEDS: LORazepam 0.5 MG TABLET PO PRN (15:19)
[2020-06-04] MEDS: ACETAMINOPHEN 325 MG TABLET PO PRN ×2 (15:19→20:26)
--- NOTE | 2020-06-04 17:55 | PN ---
DATE: 06/04/2020 SUBJECTIVE: The patient was admitted originally to this hospital because of shortness of breath and hypoxia as well as healthcare-associated pneumonia, for which he was started on IV cefepime. He obviously has longstanding chronic lymphatic leukemia and anemia secondary to that. However, the patient has profound dementia and apparently underwent laminectomy at T11-T12, T12-L1 and extending from L2 through at least L3-L4. However, the patient is profoundly demented and he is very weak. I spoke with Dr. Enamorado who recommended that he should be admitted to a rehabilitation hospital; however, on evaluation by our physical and occupational therapy and nursing staff, the patient really cannot participate with physical therapy, both mentally and physically, and we have spoken with his DPOA and explained that he would not be able to participate with the physical therapy and the option is either to go to a skilled nursing for long-term care and/or to consider hospice care. Our health and social care teacher is in discussion with the family regarding his disposition. When I saw him this afternoon, he was resting slightly propped up in bed, eating his dinner comfortably, in no apparent distress. On questioning him, he denied any complaint; however, I do not think he is aware of his circumstances or his weaknesses. He claims he can walk and do a lot of things, but he in fact requires Mikie lift. PHYSICAL EXAMINATION: GENERAL: When I examined him, he looked pale, but no jaundice, cyanosis or thyromegaly. No jugular venous distention. No limb edema. VITAL SIGNS: His heart rate was 89, blood pressure was 130/64, temperature 97.5, respiratory rate 20, and oxygen saturation was 96%. HEAD, EYES, EARS, NOSE AND THROAT: Showed normocephalic, atraumatic. NECK: Supple. HEART: Showed normal first and second heart sounds. No gallop or murmur. CHEST: Clear to auscultation. No crepitation or rhonchi. ABDOMEN: Distended, soft, nontender. NEUROLOGIC: He was awake, alert, responding appropriately. All cranial nerves are intact. He moves upper extremities to a much greater extent than lower extremities. He has basically functional paraplegia. His intake was 615, no output was recorded. LABORATORY DATA: As of yesterday showed a white cell count of 112,000, hemoglobin 7.4, hematocrit 26.8, MCV 81 and platelet count 260,000. His chemistry showed a serum sodium 144, potassium 3.5, chloride 108, bicarbonate 28, anion gap of 8, BUN 20, creatinine 1, estimated GFR was 72 mL per minute, glucose 111, calcium was 8.3. ASSESSMENT: 1. Acute hypoxic respiratory failure, resolved. 2. Healthcare-associated pneumonia for which he is on IV cefepime and Zyvox. 3. Longstanding chronic lymphatic leukemia with anemia secondary to chronic lymphatic leukemia. 4. Degenerative disk disease, status post recent back surgery where he underwent laminectomy at T11-T12, T12-L1 and extending from L2 through at least L3-L4. 5. Chronic renal insufficiency. 6. Hypertension. 7. Paroxysmal atrial fibrillation. PLAN: My plan is to continue with IV antibiotic for now. Speaking with Dr. Enamorado, he did not want this fluid collection to be touched and that should absorb spontaneously according to him. We are awaiting the outcome of discussion between our health and social care teacher and his DPOA regarding his disposition tomorrow. KRANTHI PRUITT MD DR: ONELIA/sherlyn JOB#: [id number] / [id number]
--- NOTE | 2020-06-04 18:26 | NUR ---
NURSING NOTE PT WAS IN BED THIS AM UPON ASSESSMENT AND MEDICATION ADMINISTRATION. PT IS A&O TO SELF ONLY. PT TAKES PILLS WHOLE WITH NO PROBLEM. PT INDEPENDENT WITH MEALS DOES BETTER WITH FINGER FOODS. THIS AFTERNOON, PT WAS MOANING OUT, PRN TYLENOL AND ATIVAN GIVEN TO HELP PT RELAX AND MORE COMFORTABLE. BANDAGE ON BACK CHANGED. NO COMPLICATIONS. WILL CONTINUE TO MONITOR. PT BEING FOLLOWED BY CASE MANAGEMENT FOR DISCHARGE PLANNING. YUN MARY.
[2020-06-04 19:46] VITALS: BP 130/63
[2020-06-04] MEDS: traZODone 50 MG TABLET. PO SCH (20:26)
[2020-06-04 23:12] VITALS: BP 135/70
[2020-06-05] MEDS: CEFEPIME HCL 2 GM in IV NORMAL SALINE 100ML 100 ML IV SCH ×2 (05:59→14:43)
[2020-06-05 06:10] VITALS: BP 121/64
[2020-06-05] MEDS: MEMANTINE 10 MG TABLET. PO SCH (08:57)
[2020-06-05] MEDS: LACTOBACILLUS RHAMNOSUS GG 1 CAPSULE. PO SCH (08:57)
[2020-06-05] MEDS: MULTIVITAMIN with MINERAL TABLET. PO SCH (08:57)
[2020-06-05] MEDS: ASCORBIC ACID 500 MG TABLET PO SCH (08:57)
[2020-06-05] MEDS: TAMSULOSIN 0.4 MG CAP.ER.24H. PO SCH (08:57)
[2020-06-05] MEDS: APIXABAN 5 MG TABLET. PO SCH (08:58)
[2020-06-05] MEDS: PANTOPRAZOLE 40 MG TABLET. PO SCH (08:58)
[2020-06-05 11:32] VITALS: BP 124/70
--- NOTE | 2020-06-05 16:41 | NUR ---
NSG NOTE; DISCHARGE WRITTEN DISCHARGE INSTRUCTIONS GIVEN TO EMS PERSONNEL FOR FAMILY AND HOSPICE FOOD SERVICE SPECIALIST HERE TO [facility] AT 1600 AND STATED SHE HAD MET WITH FAMILY THIS AFTERNOON DISCHARGED TO HOME WITH HOSPICE AT 1630 VIA CART ACCOMP BY EMS PERSONNEL
== END 2020-06-05 16:30 | disposition hospice, home (50) | DRG 871 ==
LOC: ER 12:23 → 1 SOUTH 14:00
PROVIDERS: ADMIT Internal Medicine; ATTEND Internal Medicine
DX: A41.9 Sepsis, unspecified organism (principal); J18.9 Pneumonia, unspecified organism; J96.21 Acute and chronic respiratory failure with hypoxia; I13.0 Hypertensive heart and chronic kidney disease with heart failure and stage 1 through stage 4 chronic kidney disease, or unspecified chronic kidney disease; C91.10 Chronic lymphocytic leukemia of B-cell type not having achieved remission; F32.9 Major depressive disorder, single episode, unspecified; D63.0 Anemia in neoplastic disease; E78.00 Pure hypercholesterolemia, unspecified; F03.90 Unspecified dementia, unspecified severity, without behavioral disturbance, psychotic disturbance, mood disturbance, and anxiety; I48.0 Paroxysmal atrial fibrillation; Z51.5 Encounter for palliative care; Z20.828 Contact with and (suspected) exposure to other viral communicable diseases; I50.9 Heart failure, unspecified; M19.90 Unspecified osteoarthritis, unspecified site; N18.9 Chronic kidney disease, unspecified; Y95 Nosocomial condition; Z66 Do not resuscitate; Z74.01 Bed confinement status
CPT/HCPCS: 36415; 71045; 72128; 80048; 80053; 83605; 83735; 83880; 84484; 85007; 85025; 85610; 87040; 87071; 87075; 87077; 87186; 93005; 96361; 96365; 96366; J0692; J2020; J3010; J3370; J7040; J7120; 99285-25; U0003-CS